=== PATIENT | female | born 1960 | race African-American/Black ===

== ENCOUNTER 2016-08-18 07:31 | Emergency (ER) | payer SELFPAY ==
[~2016-08-18] VITALS: Ht 165.1 cm; Wt 80.0 kg
[2016-08-18] MEDS ORDERED: OLANZAPINE 10 MG/VIAL IM ONE (08:45)
[2016-08-18 08:51] LABS: BASOPHILS % 0.8 % (0.0-2.0); EOSINOPHILS % 3.1 % (0.0-5.0); HEMATOCRIT. 39.3 % (36.0-48.0); LYMPHOCYTES % 12.8 % (20.0-50.0); MEAN CORPUSCULAR HEMOGLOBIN 29.7 pg (28.0-32.0); MEAN CORPUSCULAR VOLUME 89.9 fL (81.0-99.0); MEAN PLATELET VOLUME 9.7 fl (7.4-10.4); MONOCYTES % 5.7 % (2.0-8.0); NEUTROPHILS % 77.6 % (40.0-76.0); PLATELET 147 x1000/uL (130-400); RED BLOOD CELL COUNT 4.37 mill/uL (4.2-5.4)
[2016-08-18 09:11] LABS: CLARITY URINE CLOUDY (CLEAR); COLOR URINE YELLOW (YELLOW); GLUCOSE URINE NEGATIVE (NEGATIVE); KETONES URINE TRACE (NEGATIVE); LEUKOCYTE ESTERASE URINE 2+ (NEGATIVE); NITRITE URINE NEGATIVE (NEGATIVE); OCCULT BLOOD URINE NEGATIVE (NEGATIVE); PROTEIN URINE TRACE (NEGATIVE); SPECIFIC GRAVITY URINE 1.022 (1.005-1.030); UROBILINOGEN URINE 0.2 E.U./dL (0.2-1.0)
[2016-08-18 09:55] LABS: HCG SCREEN NEGATIVE
[2016-08-18 10:56] LABS: *AMPHETAMINES SCREEN URINE PRESUMTIVE POSITIVE (NEGATIVE); *BARBITURATES SCREEN URINE NEGATIVE (NEGATIVE); *BENZODIAZEPINES SCREEN URINE PRESUMTIVE POSITIVE (NEGATIVE); *COCAINE SCREEN URINE PRESUMTIVE POSITIVE (NEGATIVE); CANNABINOID URINE SCREEN NEGATIVE (NEGATIVE); METHADONE URINE SCREEN NEGATIVE (NEGATIVE); OPIATES URINE SCREEN NEGATIVE (NEGATIVE); PHENCYCLIDINE URINE SCREEN NEGATIVE (NEGATIVE)
[2016-08-19] MEDS ORDERED: KETOROLAC 30MG/ML VIAL IM ONE (08:30)
[2016-08-20 08:00] VITALS: BP 122/45
== END 2016-08-20 09:25 | disposition home or self-care (01) ==
LOC: ER 07:49
DX: R45.851 Suicidal ideations (principal); N39.0 Urinary tract infection, site not specified; I10 Essential (primary) hypertension; F25.0 Schizoaffective disorder, bipolar type; F14.10 Cocaine abuse, uncomplicated; F17.210 Nicotine dependence, cigarettes, uncomplicated; F10.10 Alcohol abuse, uncomplicated; Y90.0 Blood alcohol level of less than 20 mg/100 ml; K75.9 Inflammatory liver disease, unspecified; Z91.19 Patient's noncompliance with other medical treatment and regimen; Z59.0 Homelessness
CPT/HCPCS: 36415; 80048; 80305; 81001; 84703; 85025; 96372; 99284; G0482; J1885; J3490; Z7610

== ENCOUNTER 2016-12-21 22:41 | Emergency (ER) | payer OTHER ==
[~2016-12-21] VITALS: Ht 162.6 cm; Wt 62.0 kg
[2016-12-21 22:47] VITALS: BP 175/116
== END 2016-12-22 00:38 | disposition left against medical advice (07) ==
LOC: ER 22:41
DX: M32.9 Systemic lupus erythematosus, unspecified (principal); Z53.21 Procedure and treatment not carried out due to patient leaving prior to being seen by health care provider

== ENCOUNTER 2016-12-26 22:29 | Emergency (ER) | payer OTHER ==
[~2016-12-26] VITALS: Ht 165.1 cm; Wt 61.0 kg
[2016-12-27] MEDS ORDERED: ASPIRIN 81MG TABLET PO ONE (03:45)
[2016-12-27] MEDS ORDERED: LABETALOL 5MG/ML SYR 20 MG/4 ML SYRINGE IV ONE (03:45)
[2016-12-27] MEDS ORDERED: NITROGLYCERIN OINT 1GM/INCH UDPKT TD ONE (03:45)
[2016-12-27 04:23] LABS: BASOPHILS % 1.3 % (0.0-2.0); EOSINOPHILS % 8.4 % (0.0-5.0); HEMATOCRIT. 44.9 % (36.0-48.0); HEMOGLOBIN. 15.4 g/dL (12.0-16.0); LYMPHOCYTES % 30.9 % (20.0-50.0); MEAN CORPUSCULAR HEMOGLOBIN 30.6 pg (28.0-32.0); MEAN CORPUSCULAR VOLUME 89.5 fL (81.0-99.0); MEAN PLATELET VOLUME 9.4 fl (7.4-10.4); MONOCYTES % 7.5 % (2.0-8.0); NEUTROPHILS % 51.9 % (40.0-76.0); PLATELET 178 x1000/uL (130-400); RED BLOOD CELL COUNT 5.01 mill/uL (4.2-5.4); RED CELL DISTRIBUTION WIDTH 15.1 % (11.6-14.6)
[2016-12-27 04:29] LABS: PROTHROMBIN TIME 10.1 sec (9.4-11.6)
[2016-12-27 04:40] LABS: CLARITY URINE CLEAR (CLEAR); COLOR URINE YELLOW (YELLOW); GLUCOSE URINE NEGATIVE (NEGATIVE); KETONES URINE NEGATIVE (NEGATIVE); LEUKOCYTE ESTERASE URINE NEGATIVE (NEGATIVE); NITRITE URINE NEGATIVE (NEGATIVE); OCCULT BLOOD URINE NEGATIVE (NEGATIVE); PH URINE 5.5 (4.5-8.0); PROTEIN URINE NEGATIVE (NEGATIVE)
[2016-12-27 04:47] LABS: AMMONIA 35 uMol/L (<32)
[2016-12-27 04:51] LABS: CARBON DIOXIDE 24 mEq/L (21-32); CHLORIDE 109 mEq/L (98-107); ETHANOL BLOOD 36 mg/dL; TROPONIN I < 0.02 ng/mL (0.00-0.04)
[2016-12-27 05:32] LABS: *AMPHETAMINES SCREEN URINE PRESUMTIVE POSITIVE (NEGATIVE); *BARBITURATES SCREEN URINE NEGATIVE (NEGATIVE); *BENZODIAZEPINES SCREEN URINE PRESUMTIVE POSITIVE (NEGATIVE); *COCAINE SCREEN URINE PRESUMTIVE POSITIVE (NEGATIVE); CANNABINOID URINE SCREEN PRESUMTIVE POSITIVE (NEGATIVE); METHADONE URINE SCREEN NEGATIVE (NEGATIVE); OPIATES URINE SCREEN NEGATIVE (NEGATIVE); PHENCYCLIDINE URINE SCREEN NEGATIVE (NEGATIVE)
[2016-12-27] MEDS ORDERED: HYDRALAZINE 20MG/ML VIAL IV ONE (06:45)
[2016-12-27] MEDS ORDERED: POTASSIUM CHLORIDE 20MEQ TABLET SR PO ONE (12:15)
[2016-12-27] MEDS ORDERED: CLONIDINE 0.1MG TABLET PO ONE (12:15)
[2016-12-27] MEDS ORDERED: KETOROLAC 30MG/ML VIAL IV ONE (17:30)
[2016-12-27] MEDS ORDERED: OLANZAPINE 5MG TABLET PO SCH (18:30)
[2016-12-28 04:47] VITALS: BP 152/86
== END 2016-12-28 04:50 ==
LOC: ER 22:29 → CANBEDREQ 12-27 11:52 → CANRESERV 12-27 18:15 → ENRESERV 12-27 18:15 → CANBEDREQ 12-27 18:20 → ER 12-28 04:50
DX: R45.851 Suicidal ideations (principal); F33.3 Major depressive disorder, recurrent, severe with psychotic symptoms; I16.0 Hypertensive urgency; Z75.1 Person awaiting admission to adequate facility elsewhere; E87.6 Hypokalemia; F14.10 Cocaine abuse, uncomplicated; F12.10 Cannabis abuse, uncomplicated; F15.10 Other stimulant abuse, uncomplicated; F17.210 Nicotine dependence, cigarettes, uncomplicated; K73.9 Chronic hepatitis, unspecified; M32.9 Systemic lupus erythematosus, unspecified; Z59.0 Homelessness; Z91.14 Patient's other noncompliance with medication regimen
CPT/HCPCS: 36415; 71010; 73502; 80053; 80305; 80307; 80329; 81003; 82140; 83880; 84443; 84484; 85025; 85610; 93005; 96374; 96375; 99285; G0482; J0360; J1885

== ENCOUNTER 2018-02-20 17:45 | Emergency (ER) | payer MEDICAID, OTHER ==
[~2018-02-20] VITALS: Ht 165.1 cm; Wt 70.0 kg
[2018-02-20] MEDS ORDERED: SODIUM CHLORIDE 0.9% 1,000 ML IV ONE (18:20)
[2018-02-20] MEDS ORDERED: LORAZEPAM 2MG/ML CPJ IV ONE (18:30)
[2018-02-20 19:17] LABS: BG BASE EXCESS -3.9 mmol/L (-2.0-2.0); BG CARBOXYHEMOGLOBIN 1.9 % (0.5-1.5); BG DEOXYHEMOGLOBIN 3.7 % (0.0-5.0); BG FRACTION INSPIRED OXYGEN 21; BG HCO3 ACT 20.6 mmol/L (22.0-26.0); BG METHEMOGLOBIN 0.1 % (0.0-1.5); BG OXYGEN SATURATION 96.2 % (92.0-98.5); BG OXYHEMOGLOBIN 94.3 % (94.0-97.0); BG PCO2 35.7 mmHg (35.0-45.0); BG PO2 88.7 mmHg (75.0-100.0); BG SAMPLE SITE RIGHT BRACHIAL; BG TOTAL HEMOGLOBIN 12.5 g/dL (12.0-18.0); BG VENT MODE ROOM AIR
[2018-02-20 19:24] LABS: BASOPHILS % 0.8 % (0.0-2.0); HEMATOCRIT. 41.4 % (36.0-48.0); HEMOGLOBIN. 13.8 g/dL (12.0-16.0); LYMPHOCYTES % 11.5 % (20.0-50.0); MEAN CORPUSCULAR HEMOGLOBIN 29.9 pg (28.0-32.0); MEAN CORPUSCULAR VOLUME 89.6 fL (81.0-99.0); MEAN PLATELET VOLUME 9.2 fl (7.4-10.4); MONOCYTES % 7.1 % (2.0-8.0); NEUTROPHILS % 77.6 % (40.0-76.0); PLATELET 214 x1000/uL (130-400); RED BLOOD CELL COUNT 4.62 mill/uL (4.2-5.4); RED CELL DISTRIBUTION WIDTH 14.1 % (11.6-14.6)
[2018-02-20 19:27] LABS: CLARITY URINE CLEAR (CLEAR); COLOR URINE YELLOW (YELLOW); KETONES URINE NEGATIVE (NEGATIVE); LEUKOCYTE ESTERASE URINE TRACE (NEGATIVE); NITRITE URINE NEGATIVE (NEGATIVE); OCCULT BLOOD URINE NEGATIVE (NEGATIVE); PROTEIN URINE NEGATIVE (NEGATIVE); SPECIFIC GRAVITY URINE 1.013 (1.005-1.030); UROBILINOGEN URINE 0.2 E.U./dL (0.2-1.0)
[2018-02-20 19:33] LABS: CHLORIDE 108 mEq/L (98-107)
[2018-02-20 19:39] LABS: ETHANOL BLOOD < 10 mg/dL
[2018-02-20 19:55] LABS: *AMPHETAMINES SCREEN URINE PRESUMTIVE POSITIVE (NEGATIVE); *BARBITURATES SCREEN URINE NEGATIVE (NEGATIVE); *BENZODIAZEPINES SCREEN URINE NEGATIVE (NEGATIVE); *COCAINE SCREEN URINE PRESUMTIVE POSITIVE (NEGATIVE); METHADONE URINE SCREEN NEGATIVE (NEGATIVE); OPIATES URINE SCREEN NEGATIVE (NEGATIVE); PHENCYCLIDINE URINE SCREEN NEGATIVE (NEGATIVE)
[2018-02-20 19:56] LABS: CANNABINOID URINE SCREEN PRESUMTIVE POSITIVE (NEGATIVE)
[2018-02-21] MEDS ORDERED: HALOPERIDOL 5MG TABLET PO ONE (09:45)
[2018-02-21 17:28] VITALS: BP 160/80
== END 2018-02-21 17:48 ==
LOC: ER 17:45
DX: R45.851 Suicidal ideations (principal); F14.10 Cocaine abuse, uncomplicated; F12.10 Cannabis abuse, uncomplicated; F15.10 Other stimulant abuse, uncomplicated; F17.200 Nicotine dependence, unspecified, uncomplicated; F31.9 Bipolar disorder, unspecified; I10 Essential (primary) hypertension; K75.9 Inflammatory liver disease, unspecified; Z59.0 Homelessness
CPT/HCPCS: 36415; 36600; 80053; 80305; 80307; 80329; 81003; 82375; 82805; 85025; 99285; G0482; J1630; J7030